=== PATIENT | male | born 1985 | race African-American/Black ===

== ENCOUNTER 2020-02-16 17:07 | Emergency (ER) | payer SELFPAY ==
--- NOTE | 2020-02-16 18:58 | EDM.PDOC ---
ED HPI GENERAL MEDICAL PROBLEM - General Chief Complaint: Skin Complaint Stated Complaint: RASH Time Seen by Provider: 02/16/20 17:59 Source of Information: Reports: Patient, RN Notes Reviewed - History of Present Illness INITIAL COMMENTS - FREE TEXT/NARRATIVE: 34 yr male with rash to arms and neck for about a week. Has tried some OTC creams but nothing helping. Started having mild diarrhea a few days ago that continues. No nausea or vomiting. No cough, fever, chills or difficulty breathing. - Related Data Allergies Allergy/AdvReac Type Severity Reaction Status Date / Time No Known Allergies Allergy Verified 02/16/20 17:16 Home Meds: Home Meds predniSONE [Prednisone] 50 mg PO DAILY #7 tablet 02/16/20 [Rx] Past Medical History - Past Surgical History GI Surgical History: Reports: Appendectomy Male Surgical History: Reports: Other (See Below) Other Male Surgeries/Procedures: testicular torsion Social & Family History - Tobacco Use Smoking Status *Q: Never Smoker Second Hand Smoke Exposure: No - Caffeine Use Caffeine Use: Reports: Soda - Recreational Drug Use Recreational Drug Use: No ED ROS GENERAL - Review of Systems Review Of Systems: See Below Constitutional: Denies: Fever, Chills HEENT: Denies: Throat Pain Respiratory: Denies: No Symptoms, Shortness of Breath Cardiovascular: Denies: Chest Pain GI/Abdominal: Reports: Abdominal Pain (gone), Diarrhea. Denies: Nausea, Vomiting Musculoskeletal: Reports: No Symptoms Skin: Reports: Rash Neurological: Reports: No Symptoms ED EXAM, SKIN/RASH Exam: See Below General Appearance: Alert, No Apparent Distress Head: Atraumatic Neck: Supple Respiratory/Chest: No Respiratory Distress, Lungs Clear, Normal Breath Sounds Cardiovascular: Regular Rate, Rhythm GI/Abdominal: Non-Tender Extremities: Normal Inspection, Normal Range of Motion Skin: Warm, Dry, Other (very mild slightly raised rash bilat arms, skin otherwise clear at time of eval) Course - Vital Signs Last Recorded V/S: Last Vital Signs Temp 97.8 F 02/16/20 17:12 Pulse 87 02/16/20 17:12 Resp 16 02/16/20 17:12 BP 136/97 H 02/16/20 17:12 Pulse Ox 98 02/16/20 17:12 - Orders/Labs/Meds Labs: Laboratory Tests 02/16/20 Range/Units 18:17 COVID-19 PCR Not detected (NOT DETECT) - Re-Assessments/Exams Free Text/Narrative Re-Assessment/Exam: 02/18/20 07:26 have started on oral prednisone for 1 week, covid screen to state lab Departure - Departure Time of Disposition: 18:51 Disposition: Home, Self-Care 01 Condition: Fair Clinical Impression: Skin rash Diarrhea Qualifiers: Diarrhea type: unspecified type Qualified Code(s): R19.7 - Diarrhea, unspecified - Discharge Information Prescriptions: predniSONE [Prednisone] 50 mg PO DAILY #7 tablet Instructions: Diarrhea, Adult, [id number], Rash, Adult, [id number] Referrals: PCP,None [Primary Care Provider] - Forms: ED Department Discharge Additional Instructions: prednisone 50 mg daily for 7 days. Prescription has been sent to [facility] [employer] [facility]. That should really help the rash and itching. Lubriderm is a safe OTC lotion to use if you need to put some type of lotion on your skin for moisturization. A covid screen has been done. That will be sent to the state lab. You will be notified of results in 3 to 4 days. Self Isolate and wear a mask at all times when around family until you do get the covid results. Sepsis Event Note (ED) - Evaluation Sepsis Screening Result: No Definite Risk
== END 2020-02-16 19:12 | disposition home or self-care (01) ==
LOC: JD.ED 17:07
DX: R21 Rash and other nonspecific skin eruption (principal); R19.7 Diarrhea, unspecified; Z20.828 Contact with and (suspected) exposure to other viral communicable diseases
CPT/HCPCS: 99282; 99283; U0002

== ENCOUNTER 2020-11-08 10:36 | Emergency (ER) | payer SELFPAY ==
--- NOTE | 2020-11-08 10:58 | EDM.PDOC ---
ED HPI GENERAL MEDICAL PROBLEM - General Chief Complaint: Genitourinary Problem Stated Complaint: STD CHECK Time Seen by Provider: 11/08/20 10:41 Source of Information: Reports: Patient History Limitations: Reports: No Limitations - History of Present Illness INITIAL COMMENTS - FREE TEXT/NARRATIVE: The patient presents for a STD check. He was told by one of his partners that meghana myers have chlamydia and they accused him of giving it to her. He has no drainage. He says there is a funny feeling at the end of his penis like some burning. He has no fever, chills, cough, chest pain, shortness of breath, abdominal pain, nausea or vomiting. He has no rash. Onset: Gradual Duration: Day(s): Severity: Moderate Improves with: Reports: None Worsens with: Reports: None Associated Symptoms: Reports: No Other Symptoms - Related Data Allergies Allergy/AdvReac Type Severity Reaction Status Date / Time No Known Allergies Allergy Verified 11/08/20 10:44 Home Meds: Home Meds . [No Known Home Meds] 11/08/20 [History] Past Medical History - Past Surgical History GI Surgical History: Reports: Appendectomy Male Surgical History: Reports: Other (See Below) Other Male Surgeries/Procedures: testicular torsion Social & Family History - Tobacco Use Tobacco Use Status *Q: Never Tobacco User - Caffeine Use Caffeine Use: Reports: Soda - Recreational Drug Use Recreational Drug Use: Yes Recreational Drug Type: Reports: Marijuana/Hashish ED ROS GENERAL - Review of Systems Review Of Systems: See Below Constitutional: Reports: No Symptoms HEENT: Reports: No Symptoms Respiratory: Reports: No Symptoms Cardiovascular: Reports: No Symptoms Endocrine: Reports: No Symptoms GI/Abdominal: Reports: No Symptoms : Reports: Dysuria ED EXAM, RENAL/ - Physical Exam Exam: See Below Exam Limited By: No Limitations General Appearance: Alert, No Apparent Distress Ears: Normal External Exam Nose: Normal Inspection Head: Atraumatic, Normocephalic Neck: Normal Inspection Respiratory/Chest: No Respiratory Distress (Male) Exam: Normal Inspection, Other (No discharge and no rashes) Course - Vital Signs Last Recorded V/S: Last Vital Signs Temp 97 F 11/08/20 10:41 Pulse 90 11/08/20 10:41 Resp 16 11/08/20 10:41 BP 143/84 H 11/08/20 10:41 Pulse Ox 97 11/08/20 10:41 - Orders/Labs/Meds Orders: Active Orders 24 hr Category Date Time Status GC/CHLAMYDIA BY PCR [MOLEC] Stat Lab 11/08/20 10:49 Received Azithromycin [Zithromax] Med 11/08/20 11:52 Once 1,000 mg PO ONETIME ONE cefTRIAXone 250 MG,Lidocaine 1% 0.9 ML IM Onetime Med 11/08/20 11:52 Ordered cefTRIAXone [Rocephin] 250 mg Lidocaine 1% [Xylocaine-MPF 1%] 0.9 ml IM ONETIME Labs: Laboratory Tests 11/08/20 11/08/20 Range/Units 11:07 11:07 RPR Non-reactive (NONREACTIVE) HIV-1 Ab Rapid Screen Negative (NEGATIVE) - Re-Assessments/Exams Free Text/Narrative Re-Assessment/Exam: 11/08/20 10:57 I have ordered gonorrhea, chlamydia, HIV and syphilis. 11/08/20 11:53 The HIV and RPR were negative. It will be another 50minutes for the gonorrhea and chlamydia. The patient does not want to wait. He knows he has it and just wants to be treated. I have ordered rocephin 250mg IM and zithromax 1 gram PO. Departure - Departure Time of Disposition: 12:00 Disposition: Home, Self-Care 01 Condition: Good Clinical Impression: Chlamydia contact, treated - Discharge Information *PRESCRIPTION DRUG MONITORING PROGRAM REVIEWED*: Not Applicable *COPY OF PRESCRIPTION DRUG MONITORING REPORT IN PATIENT JESSICA: Not Applicable Referrals: PCP,None [Primary Care Provider] - Adolfo Maria, [facility] [Physician [facility]] - 1 Week Forms: ED Department Discharge Additional Instructions: Try to use protection with intercourse. Please return if you are worse. Sepsis Event Note (ED) - Evaluation Sepsis Screening Result: No Definite Risk - Focused Exam Vital Signs: Vital Signs Temp Pulse Resp BP Pulse Ox 11/08/20 10:41 97 F 90 16 143/84 H 97 - My Orders Last 24 Hours: My Active Orders 11/08/20 10:49 GC/CHLAMYDIA BY PCR [MOLEC] Stat 11/08/20 11:52 Azithromycin [Zithromax] 1,000 mg PO ONETIME ONE cefTRIAXone 250 MG,Lidocaine 1% 0.9 ML IM Onetime cefTRIAXone [Rocephin] 250 mg Lidocaine 1% [Xylocaine-MPF 1%] 0.9 ml IM ONETIME - Assessment/Plan Last 24 Hours: My Active Orders 11/08/20 10:49 GC/CHLAMYDIA BY PCR [MOLEC] Stat 11/08/20 11:52 Azithromycin [Zithromax] 1,000 mg PO ONETIME ONE cefTRIAXone 250 MG,Lidocaine 1% 0.9 ML IM Onetime cefTRIAXone [Rocephin] 250 mg Lidocaine 1% [Xylocaine-MPF 1%] 0.9 ml IM ONETIME
[2020-11-08] MEDS ORDERED: cefTRIAXone 250 MG, Lidocaine 1% 0.9 ML IM ONE ×2 (11:52)
[2020-11-08] MEDS ORDERED: Azithromycin 250 MG Tab PO ONE (11:52)
[2020-11-08 12:39] LABS: C. TRACHOMATIS BY PCR DETECTED; N. GONORRHOEAE BY PCR NOT DETECTED
== END 2020-11-08 12:18 | disposition home or self-care (01) ==
LOC: JD.ED 10:36
DX: A74.9 Chlamydial infection, unspecified (principal)
CPT/HCPCS: 36415; 86592; 87449; 87491; 87591; 96365; 96366; 96375; 99285; A9270; J0696; 99283; G0433

== ENCOUNTER 2021-04-23 09:36 | Emergency (ER) | payer MEDICAID ==
--- NOTE | 2021-04-23 12:37 | EDM.PDOC ---
ED HPI GENERAL MEDICAL PROBLEM - General Chief Complaint: General Stated Complaint: std treatment Time Seen by Provider: 04/23/21 10:02 Source of Information: Reports: Patient History Limitations: Reports: No Limitations - History of Present Illness INITIAL COMMENTS - FREE TEXT/NARRATIVE: The patient presents for exposure to trichamonis and chlamydia. A women he was having intercourse with may have had both. He has no symptoms such as discharge, burning with urination, abdominal pain, nausea or vomiting. He would like to be checked. Onset: Gradual Duration: Day(s): Improves with: Reports: None Worsens with: Reports: None Associated Symptoms: Reports: No Other Symptoms - Related Data Allergies Allergy/AdvReac Type Severity Reaction Status Date / Time No Known Allergies Allergy Verified 04/23/21 09:45 Home Meds: Home Meds . [No Known Home Meds] 11/08/20 [History] Past Medical History - Past Health History Medical/Surgical History: Denies Medical/Surgical History - Past Surgical History GI Surgical History: Reports: Appendectomy Male Surgical History: Reports: Other (See Below) Other Male Surgeries/Procedures: testicular torsion Social & Family History - Family History Family Medical History: No Pertinent Family History - Tobacco Use Tobacco Use Status *Q: Never Tobacco User - Caffeine Use Caffeine Use: Reports: None - Recreational Drug Use Recreational Drug Use: Yes Recreational Drug Type: Reports: Marijuana/Hashish ED ROS GENERAL - Review of Systems Review Of Systems: See Below Constitutional: Reports: No Symptoms HEENT: Reports: No Symptoms Respiratory: Reports: No Symptoms Cardiovascular: Reports: No Symptoms Endocrine: Reports: No Symptoms GI/Abdominal: Reports: No Symptoms : Reports: No Symptoms Musculoskeletal: Reports: No Symptoms Skin: Reports: No Symptoms ED EXAM, GENERAL - Physical Exam Exam: See Below Exam Limited By: No Limitations General Appearance: Alert, No Apparent Distress Ears: Normal External Exam Nose: Normal Inspection Head: Atraumatic, Normocephalic Neck: Normal Inspection Respiratory/Chest: No Respiratory Distress, Lungs Clear, Normal Breath Sounds Cardiovascular: Regular Rate, Rhythm, No Edema, No Murmur GI/Abdominal: Soft, Non-Tender, No Organomegaly, No Mass Extremities: Normal Inspection Course - Vital Signs Last Recorded V/S: Last Vital Signs Temp 97.3 F 04/23/21 09:43 Pulse 97 04/23/21 09:43 Resp 14 04/23/21 09:43 BP 127/92 H 04/23/21 09:43 Pulse Ox 99 04/23/21 09:43 - Orders/Labs/Meds Labs: Laboratory Tests 04/23/21 Range/Units 11:04 C trachomatis DNA (PCR) Detected H N gonorrhoeae DNA (PCR) Not detected Meds: Medications Discontinued Medications Generic Name Dose Route Start Last Admin Trade Name Freq PRN Reason Stop Dose Admin Azithromycin 1,000 mg 04/23/21 13:01 Azithromycin 250 Mg Tab PO 04/23/21 13:02 ONETIME ONE Ceftriaxone Sodium 250 mg/ 0 mg 04/23/21 13:01 Lidocaine HCl 0.9 ml IM 04/23/21 13:02 ONETIME ONE - Re-Assessments/Exams Free Text/Narrative Re-Assessment/Exam: 04/23/21 12:37 I will check him for GC/chlamydia. 04/23/21 13:09 The gonorrhea was negative but the chlamydia was positive. I will give him a shot of rocephin adn 1 gram of zithromax. Departure - Departure Time of Disposition: 13:10 Disposition: Home, Self-Care 01 Condition: Good Clinical Impression: Chlamydia infection - Discharge Information *PRESCRIPTION DRUG MONITORING PROGRAM REVIEWED*: Not Applicable *COPY OF PRESCRIPTION DRUG MONITORING REPORT IN PATIENT JESSICA: Not Applicable Referrals: PCP,None [Primary Care Provider] - Forms: ED Department Discharge Additional Instructions: Drink plenty of fluids. You are infectious for 3 to 5 days after the antibiotics. Avoid intercourse but if you cannot please wear a condom. Please return if you are worse. Sepsis Event Note (ED) - Focused Exam Vital Signs: Vital Signs Temp Pulse Resp BP Pulse Ox 04/23/21 09:43 97.3 F 97 14 127/92 H 99
[2021-04-23 12:58] LABS: C. TRACHOMATIS BY PCR DETECTED; N. GONORRHOEAE BY PCR NOT DETECTED
[2021-04-23] MEDS ORDERED: Azithromycin 250 MG Tab PO ONE (13:01)
[2021-04-23] MEDS ORDERED: cefTRIAXone 250 MG, Lidocaine 1% 0.9 ML IM ONE ×2 (13:01)
== END 2021-04-23 13:28 | disposition home or self-care (01) ==
LOC: JD.ED 09:36
DX: A74.9 Chlamydial infection, unspecified (principal)
CPT/HCPCS: 87491; 87591; 96372; 99283; A9270; J0696

== ENCOUNTER 2022-08-30 00:33 | Emergency (ER) | payer OTHER ==
[2022-08-30] MEDS ORDERED: Lidocaine 1% 10 ML MDV INJECT ONE (00:52)
[2022-08-30] MEDS ORDERED: Amoxicillin/Clavulanate K 875-125 MG Tab PO ONE (00:53)
[2022-08-30] MEDS ORDERED: Ondansetron 4 MG Tab.DIS PO ONE (01:25)
[2022-08-30] MEDS ORDERED: Diphtheria,Pertussis(Acell),Tetanus Vaccine 0.5 ML Syringe IM ONE (01:25)
== END 2022-08-30 01:49 | disposition home or self-care (01) ==
LOC: JD.ED 00:33
DX: S61.451A Open bite of right hand, initial encounter (principal); Z23 Encounter for immunization; W54.0XXA Bitten by dog, initial encounter
CPT/HCPCS: 12002; 90471; 90715; 99283; A9270; J3490

== ENCOUNTER 2023-11-20 21:30 | Emergency (ER) | payer SELFPAY ==
[2023-11-20 22:45] LABS: APPEARANCE,URINE CLEAR (Clear); BILIRUBIN,URINE NEGATIVE (Negative); COLOR,URINE YELLOW (Yellow); GLUCOSE,URINE NEGATIVE (Negative); KETONES,URINE NEGATIVE (Negative); LEUKOCYTE ESTERASE,URINE NEGATIVE (Negative); NITRITE,URINE NEGATIVE (Negative); OCCULT BLOOD,URINE NEGATIVE (Negative); PH,URINE 6.5 (5.0-8.0); PROTEIN,URINE 1+ (Negative)
[2023-11-20 22:49] LABS: BASOPHILS ABSOLUTE AUTO 0.1 K/mm3 (0.0-0.2); BASOPHILS PERCENT AUTO 0.7 % (0.0-1.0); EOSINOPHILS ABSOLUTE AUTO 0.1 K/mm3 (0.0-0.4); EOSINOPHILS PERCENT AUTO 1.6 % (0.0-6.0); HEMATOCRIT 41.3 % (42.0-52.0); HEMOGLOBIN 14.2 gm/dl (14.0-18.0); IMMATURE GRAN ABSOLUTE AUTO 0.01 K/mm3 (0.00-0.05); IMMATURE GRAN PERCENT AUTO 0.1 % (0.0-0.4); LYMPHOCYTES ABSOLUTE AUTO 3.3 K/mm3 (1.0-4.8); LYMPHOCYTES PERCENT AUTO 47.5 % (24.0-44.0); MEAN CORPUSCULAR HGB CONC 34.4 g/dl (32.0-36.0); MEAN CORPUSCULAR VOLUME 90.2 fl (83.0-99.0); MEAN PLATELET VOLUME 9.8 fl (9.4-12.4); MONOCYTES ABSOLUTE AUTO 0.6 K/mm3 (0.0-0.8); NEUTROPHILS ABSOLUTE AUTO 2.9 K/mm3 (1.8-7.7); NEUTROPHILS PERCENT AUTO 42.1 % (41.0-71.0); PLATELET COUNT,PLT 245 K/mm3 (150-400); RED BLOOD CELL COUNT 4.58 M/mm3 (4.52-5.90); WHITE BLOOD CELL COUNT,WBC 6.89 K/mm3 (3.9-11.3)
[2023-11-20 23:03] LABS: BACTERIA,URINE FEW /hpf (FEW); EPITHELIAL CELLS,URINE 0-5 /hpf (0-5); MUCUS,URINE MODERATE /hpf (FEW); RBC,URINE 0-5 /hpf (0-5); WBC,URINE 0-5 /hpf (0-5)
[2023-11-20 23:14] LABS: ALBUMIN 3.3 g/dl (3.4-5.0); ALKALINE PHOSPHATASE 64 U/L (46-116); ANION GAP 14.6 (5-15); BILIRUBIN TOTAL 0.4 mg/dL (0.2-1.0); BLOOD UREA NITROGEN,BUN 11 mg/dL (7-18); BUN/CREATININE RATIO 9.2 (14-18); C-REACTIVE PROTEIN 0.09 mg/dL (<0.30); CALCIUM 7.9 mg/dL (8.5-10.1); CARBON DIOXIDE,CO2 26 mEq/L (21-32); CHLORIDE,CL 106 mEq/L (98-107); CREATININE 1.2 mg/dL (0.7-1.3); EST CRCL DRUG DOSING (CG) 87.87 mL/min; ESTIMATED GFR 80 mL/min (>60); LIPASE 29 U/L (16-77); MAGNESIUM 1.9 mg/dL (1.8-2.4); PROTEIN TOTAL,TP 6.5 g/dl (6.4-8.2); SODIUM,NA 143 mEq/L (136-145)
[2023-11-20 23:21] LABS: GLUCOSE RANDOM 111 mg/dL (70-99); POTASSIUM,K 3.6 mEq/L (3.5-5.1)
== END 2023-11-20 23:55 | disposition home or self-care (01) ==
LOC: JD.ED 21:30
DX: A08.4 Viral intestinal infection, unspecified (principal); Z86.16 Personal history of COVID-19
CPT/HCPCS: 36415; 80053; 81001; 83690; 83735; 85025; 86140; 99283; 99284

== ENCOUNTER 2024-03-21 20:15 | Emergency (ER) | payer SELFPAY ==
[2024-03-21 21:12] LABS: APPEARANCE,URINE CLEAR (Clear); BILIRUBIN,URINE NEGATIVE (Negative); COLOR,URINE YELLOW (Yellow); GLUCOSE,URINE NEGATIVE (Negative); KETONES,URINE NEGATIVE (Negative); LEUKOCYTE ESTERASE,URINE NEGATIVE (Negative); NITRITE,URINE NEGATIVE (Negative); OCCULT BLOOD,URINE NEGATIVE (Negative); PH,URINE 6.5 (5.0-8.0); PROTEIN,URINE NEGATIVE (Negative)
[2024-03-21] MEDS: Azithromycin 250 MG Tab PO ONE (21:29)
[2024-03-21] MEDS: cefTRIAXone 500 MG Vial IM ONE (21:29)
[2024-03-21 22:38] LABS: C. TRACHOMATIS BY PCR NOT DETECTED; N. GONORRHOEAE BY PCR NOT DETECTED
== END 2024-03-21 21:40 | disposition home or self-care (01) ==
LOC: JD.ED 20:15
DX: Z20.2 Contact with and (suspected) exposure to infections with a predominantly sexual mode of transmission (principal); Z86.16 Personal history of COVID-19; Z90.49 Acquired absence of other specified parts of digestive tract
CPT/HCPCS: 81003; 87491; 87591; 96372; 99283; A9270; J0696